=== PATIENT | female | born 1955 | race Caucasian/White ===

== ENCOUNTER 2020-03-25 09:39 | Inpatient (IN) | payer MEDICAID, MEDICARE, SELFPAY ==
[~2020-03-25] VITALS: Ht 165.1 cm; Wt 57.2 kg
[2020-03-25 09:39] VITALS: BP_SYST 127
--- NOTE | 2020-03-25 09:46 | NUR ---
Patient to ER bed 08 to gown for evaluation. Side rails up.
--- NOTE | 2020-03-25 09:48 | NUR ---
Patient brought in by ambulance in the ED for abnormal labs. Patient is from [facility]. Denied any chest pain or shortness of breath. Denied any fevers, chills, nausea or vomiting. Patient is alert and oriented x2, respirations even and unlabored, speaking in full sentences. VSS, pain severity 0/10. Informed of the approximate wait time. Instucted to notify ED staff for any changes in condition or worsening of symptoms. Patient verbalized understanding.
--- NOTE | 2020-03-25 09:52 | NUR ---
instrumentation and controls technician at bedside collecting blood specimen as ordered by Dr. Monsalve. Patient tolerated the procedure well.
--- NOTE | 2020-03-25 10:02 | NUR ---
X-ray tech at bedside as ordered by Dr. Monsalve. Patient tolerated the procedure well.
[2020-03-25 10:12] LABS: BASOPHILS % (AUTO) 0.5 % (0.0-2.0); EOSINOPHILS # (AUTO) 0.2 K/uL (0.0-0.4); EOSINOPHILS % (AUTO) 3.1 % (0.0-4.0); HEMATOCRIT 31.2 % (36-48); HEMOGLOBIN 10.4 g/dL (12.0-16.0); LYMPHOCYTES # (AUTO) 2.1 K/uL (1.0-5.5); LYMPHOCYTES % (AUTO) 37.7 % (20.5-51.5); MEAN CORPUSCULAR HEMOGLOBIN 30 pg (27-31); MEAN CORPUSCULAR HGB CONC 33 % (32-36); MEAN CORPUSCULAR VOLUME 91 fL (79.0-98.0); MONOCYTES # (AUTO) 0.4 K/uL (0.0-1.0); MONOCYTES % (AUTO) 6.3 % (1.7-9.3); NEUTROPHILS # (AUTO) 2.9 K/uL (1.8-7.7); NEUTROPHILS % (AUTO) 52.4 % (40.0-70.0); PLATELET COUNT (AUTO) 189 K/uL (130-430); RED BLOOD CELL COUNT(AUTO) 3.45 MIL/uL (4.2-6.2); WHITE BLOOD COUNT (AUTO) 5.6 K/uL (4.8-10.8)
--- NOTE | 2020-03-25 10:15 | NUR ---
ER Dr. Monsalve at bedside examining patient.
--- NOTE | 2020-03-25 10:17 | NUR ---
ECG done at bedside as ordered by Dr. Monsalve. Patient tolerated the procedure well. Report given to ER MD for review.
--- NOTE | 2020-03-25 10:20 | NUR ---
Swabbed for rapid covid as ordered by Dr. Monsalve. Patient tolerated the procedure well.
[2020-03-25 10:23] LABS: CALCIUM 9.1 mg/dL (8.4-11.0); CREATININE 0.8 mg/dL (0.55-1.30); POTASSIUM 4.5 mmol/L (3.5-5.1)
[2020-03-25 10:28] LABS: ALBUMIN 3.4 g/dL (3.4-4.8); TOTAL BILIRUBIN 0.3 mg/dL (0.0-1.0)
--- NOTE | 2020-03-25 10:28 | NUR ---
MRSA swab collected and sent to the lab
[2020-03-25] MEDS ORDERED: OLAN10TA3 PO (10:37)
[2020-03-25] MEDS ORDERED: HAL2 PO (10:37)
[2020-03-25] MEDS ORDERED: BENZ1TAB8 PO (10:37)
[2020-03-25] MEDS ORDERED: FLUP10TA12 PO (10:37)
--- NOTE | 2020-03-25 10:39 | NUR ---
Notified ED Admitting of possible admit/transfer.
[2020-03-25 10:40] LABS: PROTHROMBIN TIME 9.9 SECS (9.5-12.5)
--- NOTE | 2020-03-25 11:18 | NUR ---
Report given and care transferred to ADRI Carvalho.
--- NOTE | 2020-03-25 11:20 | NUR ---
Asumption of care received ,pt resting at this time, no s/s of distress, will cont to monitor.
--- NOTE | 2020-03-25 12:30 | NUR ---
ADMISSION NOTE Received patient from ER via mirella, received report from Maia RUSH. Patient admitted with diagnosis of acute hepatitis. Patient oriented to hospital routine, call light, toileting and safety-patient verbalized understanding.
--- NOTE | 2020-03-25 12:33 | NUR ---
Patient will be admitted to care of Dr Mix. Admitted to Medsurg unit. Will go to room 104B . Belongings list completed. Complete and up to date summary report printed. SBAR report to be given at bedside with opportunity for questions.
[2020-03-25 12:53] VITALS: BP_SYST 120
--- NOTE | 2020-03-25 13:00 | NUR ---
opening notes, received pt from e.r. , pt is aaox2, c/o of pain on the iv access site ( r.ac) , other kirk no c/o pain, no sob, pt had abdominal u/s. pt served lunch, reg diet as ordered. pt educated on the use of call light, tv and bed controls. encouraged to call nurses, for assist and pain medications. will cont to monitor.
--- NOTE | 2020-03-25 14:07 | NUR ---
seen pt in room, noted that pt is taking to herself. no c/o pain, no sob. will cont to monitor.
[2020-03-25] MEDS ORDERED: HALOPERIDOL LACTATE 5 MG/ML VIAL IM PRN (15:15)
[2020-03-25] MEDS ORDERED: DIPHENHYDRAMINE INJ 50 MG/ML VIAL IVP PRN (15:15)
--- NOTE | 2020-03-25 15:15 | NUR ---
CONSULTATION PAGED/CALLED Reason for Consultation: ABNORMAL LFT Person Who was Notified: EXCHANGE Consulting Physician: DR. KRISH [employer] Associate Specialty: GI Ordering Physician: DR. DIETRICH
[2020-03-25] MEDS: D5/0.45 NS 1,000 ML IV SCH (15:57)
[2020-03-25 16:29] VITALS: BP_SYST 122
--- NOTE | 2020-03-25 19:28 | NUR ---
closing notes, pt has been stable since arrival from e.r., endorsed to night nurse.
[2020-03-25 20:05] VITALS: BP_SYST 105
[2020-03-25] MEDS ORDERED: FLUPHENAZINE HCL 5 MG PO SCH (21:00)
[2020-03-25] MEDS: HALOPERIDOL 1 MG TABLET (HALDOL) PO SCH (21:07)
--- NOTE | 2020-03-25 23:22 | NUR ---
DR. DIETRICH MADE AWARE THAT PATIENT IS VERY CONFUSED AND UNABLE TO KEEP IV, PULLED IV 2 TIMES TODAY. ORDERED BENADRYL 50MG PO Q4H PRN FOR AGITATION.
[2020-03-25] MEDS ORDERED: DIPHENHYDRAMINE HCL 12.5 MG/5 ML UDC PO PRN (23:30)
[2020-03-26 00:07] VITALS: BP_SYST 145
[2020-03-26] MEDS: D5/0.45 NS 1,000 ML IV SCH ×2 (04:40→15:17)
[2020-03-26 06:26] LABS: BASOPHILS % (AUTO) 0.4 % (0.0-2.0); EOSINOPHILS # (AUTO) 0.3 K/uL (0.0-0.4); EOSINOPHILS % (AUTO) 4.7 % (0.0-4.0); HEMATOCRIT 28.8 % (36-48); HEMOGLOBIN 9.5 g/dL (12.0-16.0); LYMPHOCYTES # (AUTO) 2.1 K/uL (1.0-5.5); LYMPHOCYTES % (AUTO) 38.3 % (20.5-51.5); MEAN CORPUSCULAR HEMOGLOBIN 30 pg (27-31); MEAN CORPUSCULAR HGB CONC 33 % (32-36); MEAN CORPUSCULAR VOLUME 91 fL (79.0-98.0); MONOCYTES # (AUTO) 0.5 K/uL (0.0-1.0); MONOCYTES % (AUTO) 8.5 % (1.7-9.3); NEUTROPHILS # (AUTO) 2.7 K/uL (1.8-7.7); NEUTROPHILS % (AUTO) 48.1 % (40.0-70.0); PLATELET COUNT (AUTO) 169 K/uL (130-430); RED BLOOD CELL COUNT(AUTO) 3.16 MIL/uL (4.2-6.2); RED CELL DISTRIBUTION WIDTH 13.9 % (9.0-15.0); RETICULOCYTE COUNT 0.9 % (0.5-1.5); WHITE BLOOD COUNT (AUTO) 5.6 K/uL (4.8-10.8)
--- NOTE | 2020-03-26 06:43 | NUR ---
CLOSING NOTES Patient is resting in bed, eyes closed, breathing evenly and nonlabored on room air. Patient is pleasantly confused, was agitated intermittently last night, but able to redirect. Patient took due oral medication willingly and was given PRN medication earlier in the shift. Patient has no IV site due to patient pulling IV lines "because it was uncomfortable" and unsuccessful to convince patient to start new IV. MD was made aware and gave orders earlier. Needs met throughout the shift. No s/s of distress at this time, no other needs at this time, will endorse care to morning shift RN.
[2020-03-26 06:49] LABS: ALBUMIN 3.1 g/dL (3.4-4.8); CALCIUM 9.1 mg/dL (8.4-11.0); CREATININE 1.08 mg/dL (0.55-1.30); POTASSIUM 4.2 mmol/L (3.5-5.1); THYROID STIMULATING HORMONE 10.4 uIu/mL (0.34-4.82); TOTAL BILIRUBIN 0.3 mg/dL (0.0-1.0)
[2020-03-26 07:52] LABS: TOTAL IRON BIND. CAPACITY 308 ug/dL (250-450)
[2020-03-26 08:00] VITALS: BP_SYST 148
--- NOTE | 2020-03-26 08:00 | NUR ---
Opening Notes Patient is awake, alert and oriented x2. Noted with episodes of confusion and noted talking to self. No resp distress noted. Breathing is even and unlabored. Pt denies any pain at this time. Patient is ambulatory, steady gait. NO IV access noted, MD aware. Patient is eating breakfast independently, no swallowing issues noted. Patient is refusing vital sign monitoring at the moment, will try again later. All needs met at this time. Safety and fall precautions in place. Call light within reach. Will continue to monitor.
[2020-03-26] MEDS: BENZTROPINE MESYLATE 1 MG TABLET PO SCH (08:35)
[2020-03-26] MEDS ORDERED: OLANZapine 10 MG TABLET PO SCH (09:00)
--- NOTE | 2020-03-26 09:00 | NUR ---
Notes/Refused MRI Vital signs were taken. Nurse educated patient on MRI scheduled for CBD obstruction. Patient refused at this time. Notified radiology, will try again later.
--- NOTE | 2020-03-26 10:24 | NUR ---
Notes Patient is awake, alert and oriented x2. NO resp distress noted. Breathing is even and unlabored. Denies any pain at this time. Will continue to monitor.
--- NOTE | 2020-03-26 12:00 | NUR ---
Notes Patient is awake, alert and oriented x2. No resp distress noted. Breathing is even and unlabored. Denies any pain at this time. Still refusing her scheduled MRI. Patient is ambulatory, noted standing at her doorway, watching the nursing station talking to self. No needs at this time. Will continue to monitor.
[2020-03-26 12:04] VITALS: BP_SYST 133
--- NOTE | 2020-03-26 14:29 | NUR ---
Development And Housing Director Notes: CELLULAR PLASTICS CUTTER was referred by CM to see pt for DCP and psych. CELLULAR PLASTICS CUTTER met with patient at bedside. Pt came from [facility] but prior to that, pt was living at home with family. Pt states she has multiple psych admissions, the latest was at [facility] in [facility] Addendum: 03/26/20 at 1454 by Lauri Matos CELLULAR PLASTICS CUTTER Pt is somewhat a poor historian. Pt is not aware of an incident that happened in her apartment, about her sister being evicted if pt comes back to the apartment (from [facility] chart). Pt provided with family phone numbers but they are all disconnected. Pt does not know why she was admitted at [facility], but states she has history of depression, and according to [facility], pt has schizophrenia and was on a 14 day hold. Pt denies having thoughts of hurting self/others and denies any audio/visual hallucinations. Pt also denies seeing any psych MD in the past. Pt is independent with her ADL and does not use any DME. Pt's source of income is $1000+/month and she manages her own finances. If discharge to SNF or [facility], pt does not have a preference. Pt is alert and oriented x4. Pt's behavior is calm and cooperative. Pt's mood is within normal limits and affect is congruent. SS updated CM of pt's status. CM will request for psych consult.
--- NOTE | 2020-03-26 14:44 | NUR ---
Notes Patient is awake, alert and oriented x2. No resp distress noted. Breathing is even and unlabored. Noted standing by her doorway, watching the nursing station. Steady gait. No needs at this time. Will continue to monitor.
[2020-03-26 15:50] VITALS: BP_SYST 154
--- NOTE | 2020-03-26 16:46 | NUR ---
CONSULTATION PAGED/CALLED Reason for Consultation: [] came from [facility]ago (psychosis) Consulting Physician: [] DR DOLL [employer] Former Specialty: [] PSYCH Ordering Physician: [] DR DIETRICH SPOKE TO DR DOLL AND HE SAID THAT HE WILL SEE PT TOMORROW 03/27/20
[2020-03-26] MEDS: LEVOTHYROXINE SODIUM 0.025 MG TABLET PO SCH (17:15)
--- NOTE | 2020-03-26 19:30 | NUR ---
OPENING NOTES Patient is awake, alert and oriented x2, no respiratory distress noted. Breathing is even and unlabored. Patient is standing by her doorway, watching the nursing station at this time. Patient states that she has no needs at this time. Received report that patient has no IV site, MD aware. Will continue to monitor.
[2020-03-26 20:00] VITALS: BP_SYST 139
[2020-03-26] MEDS: HALOPERIDOL 1 MG TABLET (HALDOL) PO SCH (20:43)
[2020-03-26] MEDS: QUEtiapine FUMARATE 100 MG TABLET PO SCH (20:43)
--- NOTE | 2020-03-26 22:20 | NUR ---
Patient walking around room, patient states she has no needs at this time. Will continue to monitor.
[2020-03-27] VITALS: BP_SYST 138
[2020-03-27 01:20] LABS: HEPATITIS A AB, IgM Negative (Negative); HEPATITIS B CORE AB, IgM Negative (Negative); HEPATITIS B SURFACE AG Negative (Negative)
--- NOTE | 2020-03-27 01:59 | NUR ---
Patient is sleeping, rise and fall of chest and snoring noted. No distress at this time. will continue to monitor.
--- NOTE | 2020-03-27 04:20 | NUR ---
Patient is resting, no signs of acute respiratory distress. [place] juice provided. Patient is back in bed after ambulating to the restroom. Will continue to monitor.
[2020-03-27] MEDS: LEVOTHYROXINE SODIUM 0.025 MG TABLET PO SCH (06:15)
[2020-03-27 06:37] LABS: BASOPHILS % (AUTO) 0.5 % (0.0-2.0); EOSINOPHILS # (AUTO) 0.3 K/uL (0.0-0.4); EOSINOPHILS % (AUTO) 4.5 % (0.0-4.0); HEMATOCRIT 26.9 % (36-48); LYMPHOCYTES # (AUTO) 2.3 K/uL (1.0-5.5); MEAN CORPUSCULAR HEMOGLOBIN 30 pg (27-31); MEAN CORPUSCULAR HGB CONC 33 % (32-36); MEAN CORPUSCULAR VOLUME 91 fL (79.0-98.0); MONOCYTES # (AUTO) 0.5 K/uL (0.0-1.0); MONOCYTES % (AUTO) 8.7 % (1.7-9.3); NEUTROPHILS # (AUTO) 2.6 K/uL (1.8-7.7); NEUTROPHILS % (AUTO) 45.3 % (40.0-70.0); PLATELET COUNT (AUTO) 157 K/uL (130-430); RED BLOOD CELL COUNT(AUTO) 2.95 MIL/uL (4.2-6.2); RED CELL DISTRIBUTION WIDTH 14.2 % (9.0-15.0); WHITE BLOOD COUNT (AUTO) 5.7 K/uL (4.8-10.8)
--- NOTE | 2020-03-27 06:56 | NUR ---
CLOSING NOTES Patient is awake, alert and oriented x2, no respiratory distress noted. Patient is back in bed after standing by her doorway, watching the nursing station after being awoken by lab draw. Patient had an episode of agitation where patient did not want to be reoriented and patient refused medication. No IV site, MD aware. Ambulates with steady gait. Call light within reach, bed alarm refused after patient demonstrates use of call light. Bed at lowest position. Will endorse care to oncoming shift.
--- NOTE | 2020-03-27 07:18 | NUR ---
Nutrition Update Ahmet Scale 18 noted. Pt admitted for Acute Hepatitis Diet: Regular BMI: 21 kg/m2 RD to follow per nutrition care standards.
[2020-03-27 07:57] LABS: ALBUMIN 2.9 g/dL (3.4-4.8); CALCIUM 8.8 mg/dL (8.4-11.0); CREATININE 0.8 mg/dL (0.55-1.30); FREE T4 (FREE THYROXINE) 0.6 ng/dL (0.6-1.6); POTASSIUM 3.6 mmol/L (3.5-5.1); THYROID STIMULATING HORMONE 10.36 uIu/mL (0.34-4.82); TOTAL BILIRUBIN 0.2 mg/dL (0.0-1.0)
[2020-03-27 08:00] VITALS: BP_SYST 140
--- NOTE | 2020-03-27 08:00 | NUR ---
ASSUMPTION OF CARE: RECEIVED PT A/A/OX4, DX:DEFICIENT KNOWLEDGE, R/T HEPATITIS, VSS, AFEBRILE, NO S/S OF DISTRESS, BREATH SOUNDS ARE CLEAR, BREATHING UNLABORED, REFUSES IV INSERTION, AWARE, PT DECLINES MEDICAL TX AT THIS TIME AND IS REQUESTING TO BE RELEASED HOME, WILL NOTIFY M.D., REORIENTED TO CALL LIGHT, PLACED WITHIN REACH, ROOM CLOSE TO NURSES STATION, WILL CONT' TO MONITOR AND ASSESS.
[2020-03-27 08:28] LABS: IMMUNOGLOBULIN G, SERUM 788 mg/dL (586-1602)
[2020-03-27 08:28] LABS: FOLATE (FOLIC ACID) 8.2 ng/mL (>3.0)
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
[2020-03-27] MEDS ORDERED: QUEtiapine FUMARATE 25 MG TABLET PO SCH (09:00)
--- NOTE | 2020-03-27 09:15 | NUR ---
MENTAL HEALTH SPECIALIST: MORNING MEDS REFUSED BY PT, WILL NOTIFY PCP, WILL CONT' WITH POC.
[2020-03-27] MEDS ORDERED: CYANOCOBALAMIN 1000 mCg TABLET PO ONE (10:45)
--- NOTE | 2020-03-27 10:56 | NUR ---
CONSULT SURGERY ACUTE CHOLECYSTITIS TATIANNA SHIRLEY [phone] S/W [facility] OFFICE
[2020-03-27 11:33] VITALS: BP_SYST 130
[2020-03-27 11:42] VITALS: BP_SYST 131
--- NOTE | 2020-03-27 11:43 | NUR ---
Dietitian Recommendations *Continue regular diet. *Add Ensure Enlive BID. Please see Nutritional Assessment for details. DION, CHARLA
--- NOTE | 2020-03-27 13:12 | NUR ---
SS NOTES/CONSENT: SHINGLE WEAVER received a call from sister Nu (p:[phone]) who stated that they were not aware that the patient was transferred to the facility and if consents were needed for treatment to call her mother, Luz Juárez with the same phone number. Sigrid RUSH updated.
--- NOTE | 2020-03-27 14:00 | NUR ---
NURSES NOTES: PT REFUSES TO HAVE IV INSERTION DONE, AWARE, WILL CONT' TO MONITOR AND ASSESS.
[2020-03-27] MEDS: BENZTROPINE MESYLATE 1 MG TABLET PO SCH (14:50)
[2020-03-27 15:34] VITALS: BP_SYST 139
--- NOTE | 2020-03-27 16:00 | NUR ---
NURSES NOTES: PT CONT' TO REFUSE ALL TREATMENTS AT THIS TIME, REMAINS CALM, AND ORIENTED MOST OF THE TIME, NO S/S OF DISTRESS, WILL CONT' TO MONITOR AND ASSESS.
[2020-03-27] MEDS: HALOPERIDOL 1 MG TABLET (HALDOL) PO SCH (21:00)
[2020-03-27] MEDS: QUEtiapine FUMARATE 100 MG TABLET PO SCH (21:00)
[2020-03-27 22:08] VITALS: BP_SYST 92
--- NOTE | 2020-03-27 22:10 | NUR ---
IV PATIENT AGREED TO REINSERT IV LINE. NEW IV LINE ESTABLISHED ON LFA GAUGE #22 WITH GOOD BLOOD RETURN. IVF RESUMED. VITAL SIGNS STABLE. HS SNACK PROVIDED. CALL LIGHT WITH IN REACH.
[2020-03-27] MEDS: D5/0.45 NS 1,000 ML IV SCH (22:23)
[2020-03-28] MEDS: D5/0.45 NS 1,000 ML IV SCH ×2 (00:12→14:10)
[2020-03-28 00:29] VITALS: BP_SYST 113
--- NOTE | 2020-03-28 00:30 | NUR ---
ROUNDS PATIENT RESTING IN BED. NO DISTRESS NOTED. VITAL SIGNS STABLE.
--- NOTE | 2020-03-28 03:51 | NUR ---
BRP ASSISTED PATIENT WITH BATHROOM USE. NO C/O PAIN.
--- NOTE | 2020-03-28 06:16 | NUR ---
CLOSING NOTES NO CHANGE IN PATIENT CONDITION. IVF INFUSING WITH IV LINE INTACT AND PATENT. PATIENT NEEDS ATTENDED. BED IN LOWEST LOCKED POSITION WITH ALARM ON. CALL LIGHT WITH IN REACH.
[2020-03-28 06:25] LABS: BASOPHILS % (AUTO) 0.9 % (0.0-2.0); EOSINOPHILS # (AUTO) 0.3 K/uL (0.0-0.4); EOSINOPHILS % (AUTO) 5.4 % (0.0-4.0); HEMATOCRIT 28.6 % (36-48); LYMPHOCYTES # (AUTO) 1.5 K/uL (1.0-5.5); LYMPHOCYTES % (AUTO) 31.4 % (20.5-51.5); MEAN CORPUSCULAR HEMOGLOBIN 31 pg (27-31); MEAN CORPUSCULAR HGB CONC 35 % (32-36); MEAN CORPUSCULAR VOLUME 90 fL (79.0-98.0); MONOCYTES # (AUTO) 0.4 K/uL (0.0-1.0); MONOCYTES % (AUTO) 7.8 % (1.7-9.3); NEUTROPHILS # (AUTO) 2.6 K/uL (1.8-7.7); NEUTROPHILS % (AUTO) 54.5 % (40.0-70.0); PLATELET COUNT (AUTO) 166 K/uL (130-430); RED BLOOD CELL COUNT(AUTO) 3.17 MIL/uL (4.2-6.2); RED CELL DISTRIBUTION WIDTH 14.1 % (9.0-15.0); WHITE BLOOD COUNT (AUTO) 4.9 K/uL (4.8-10.8)
[2020-03-28] MEDS: LEVOTHYROXINE SODIUM 0.025 MG TABLET PO SCH (06:46)
[2020-03-28 07:03] LABS: ALBUMIN 3.1 g/dL (3.4-4.8); CALCIUM 8.8 mg/dL (8.4-11.0); CREATININE 0.75 mg/dL (0.55-1.30); POTASSIUM 4.1 mmol/L (3.5-5.1); TOTAL BILIRUBIN 0.3 mg/dL (0.0-1.0)
[2020-03-28] MEDS ORDERED: QUEtiapine FUMARATE 100 MG TABLET PO SCH (07:45)
[2020-03-28 08:00] VITALS: BP_SYST 133
[2020-03-28] MEDS ORDERED: CYANOCOBALAMIN 1000 mCg TABLET PO SCH (09:00)
[2020-03-28] MEDS ORDERED: HALOPERIDOL 1 MG TABLET (HALDOL) PO SCH (09:00)
--- NOTE | 2020-03-28 10:50 | NUR ---
CHELSEA: WENT IN TO THE ROOM WITH TOÑO FROM NUCLEAR MEDICINE. ASKED THE PATIENT IF WE CAN DO THE HIDA SCAN TODAY. AFTER EDUCATING THE PATIENT ABOUT WHAT IT IS AND HOW LONG IT WILL TAKE. PATIENT STATES SHE DOES NOT FEEL COMFORTABLE DOING IT. RE-EDUCATED PATIENT AND TRIED TO REASSURE THE PATIENT. PATIENT CONTINUED TO REFUSE. WILL INFORM NURSE DIANA.
--- NOTE | 2020-03-28 12:00 | NUR ---
NURSES NOTES: PT OBSERVED WHILE AMBULATING INSIDE OF ROOM, APPEARS ANXIOUS, PT IS PLEASANTLY CONFUSED, ORIENTED TO CALL LIGHT AND UNIT AGAIN, EDUCATED ABOUT DIAGNOSIS AGAIN, CONT' TO REFUSE TX AT THIS TIME, WILL CONT' TO MONITOR AND ASSESS.
--- NOTE | 2020-03-28 12:34 | NUR ---
CONSULTATION PAGED/CALLED Reason for Consultation: POSSIBLE GALLBLADDER REMOVAL Person Who was Notified: SEVEN Consulting Physician: MARIEL Planting Material Carrier Specialty: SURGERY Ordering Physician: KAUR
[2020-03-28 12:58] VITALS: BP_SYST 129
[2020-03-28] MEDS: BENZTROPINE MESYLATE 1 MG TABLET PO SCH (14:11)
[2020-03-28] MEDS: QUEtiapine FUMARATE 100 MG TABLET PO SCH ×2 (14:11→18:00)
[2020-03-28 15:19] LABS: ANTI NUCLEAR AB WITH REFLEX Negative (Negative)
[2020-03-28 16:00] VITALS: BP_SYST 145
--- NOTE | 2020-03-28 16:00 | NUR ---
VISIT: AT BEDSIDE FOR ASSESSMENT OF PT, WENT INTO GREAT DETAIL WHILE EXPLAINING PLANNED PROCEDURE, PT CONT' TO SAY NO "I DON'T WANT IT", WILL NOTIFY PCP AND CONT' WITH POC.
[2020-03-28] MEDS ORDERED: CYANOCOBALAMIN 1000 mCg TABLET PO ONE (17:00)
[2020-03-28] MEDS ORDERED: SER100 PO (17:02)
[2020-03-28] MEDS ORDERED: LEVO25TA2 PO (17:02)
[2020-03-28] MEDS ORDERED: CYAN100010 PO (17:02)
[2020-03-28] MEDS ORDERED: VITD2000 PO (17:03)
--- NOTE | 2020-03-28 18:22 | NUR ---
A LATE DISCHARGE ORDER TO GO BACK TO THE [facility] WAS ORDERED BY ATTENDING MD DR DIETRICH. CALLED [facility] FOR A BED. SPOKE TO UBALDO AND WAS ASKED TO FAX PAPER WORKS PERTINENT TO TRANSFER. WAS GIVEN A BED RM 62 A AT [facility] BUT WILL ONLY ACCEPT PT AFTER 1900. BOOK A RIDE WITH [facility] FOR A ASSOCIATE PROFESSOR OF SURGERY AT 1930. SPOKE TO RABIA.
[2020-03-28 18:35] VITALS: BP_SYST 145
[2020-03-28] MEDS ORDERED: BENZ1TAB76 PO (18:54)
--- NOTE | 2020-03-28 20:10 | NUR ---
D/C Patient Patient given medication reconciliation form and D/C instructions. Exit Care provided. Patient verbalized understanding. MD discussed with patient the results and treatment provided. Ambulatory with steady gait for discharge to [facility] via ambulance. Patient in stable condition, ID band removed. IV catheter removed, intact and dressing applied, no active bleeding. Patient educated on pain management. All belongings sent with patient.
--- NOTE | 2020-03-29 08:46 | NUR ---
Roll Former Note Received a call from patient's sister, [place] [phone].She stated that her mother and she are agreeable to consent to anything the patient's needs for her health. Explained that patient has been discharged back to [facility] facility and the hope is that patient will soon be able to consent for herself or be agreeable to testing and treatment. I suggested she phone [facility] and let them know of above. No other questions or concerns.
[2020-03-29] MEDS ORDERED: CYANOCOBALAMIN 1000 mCg TABLET PO SCH (09:00)
[2020-03-31 05:12] LABS: CERULOPLASMIN 27.2 mg/dL (19.0-39.0)
[2020-04-02 14:06] LABS: ANTI-SMOOTH MUSCLE AB 14 Units (0-19)
[2020-04-03 10:05] LABS: FERRITIN 94 ng/mL (15-150)
== END 2020-03-28 20:10 ==
LOC: SED 09:39 → SMU 12:08
PROVIDERS: ADMIT Internal Medicine; ATTEND Internal Medicine
DX: B17.9 Acute viral hepatitis, unspecified (principal); K81.0 Acute cholecystitis; F20.9 Schizophrenia, unspecified; I10 Essential (primary) hypertension; G24.01 Drug induced subacute dyskinesia; F41.9 Anxiety disorder, unspecified; D64.9 Anemia, unspecified; E03.9 Hypothyroidism, unspecified; Z20.828 Contact with and (suspected) exposure to other viral communicable diseases; R17 Unspecified jaundice; Z79.899 Other long term (current) drug therapy
CPT/HCPCS: 36415; 71045; 76700-TC; 80053; 80074; 82248-TC; 82390; 82607; 82728; 82746; 82784; 83516; 83540-TC; 83550-TC; 83615-TC; 83735-TC; 84439; 84443-TC; 84484; 85025; 85044-TC; 85610-TC; 85730-TC; 86038; 86886; 86900; 86901; 87081; 93005; 99285